=== PATIENT | male | born 1990 | race Caucasian/White ===

== ENCOUNTER 2017-01-19 23:12 | Emergency (ER) | payer OTHER ==
[~2017-01-19] VITALS: Ht 182.9 cm; Wt 89.8 kg
[2017-01-19 23:15] VITALS: BP 140/87; PULSE 102; RESP 18; TEMP 98.3; O2SAT 95
--- NOTE | 2017-01-20 00:18 | NUR ---
Patient to ER bed 2 to gown for evaluation. Side rails up. Report given to KEYONNA OLSEN.
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
--- NOTE | 2017-01-20 00:55 | NUR ---
at bedside examining pt
[2017-01-20] MEDS ORDERED: DIPH-TET-PERTUS Vaccine 0.5 ML VIAL (ADACEL) I.M. ONE (01:00)
--- NOTE | 2017-01-20 02:00 | NUR ---
Pt's wound cleansed and prepared for staple per order
[2017-01-20 03:15] VITALS: BP 132/78; PULSE 92; RESP 18; TEMP 98.3; O2SAT 95
--- NOTE | 2017-01-20 03:24 | NUR ---
Patient given written and verbal discharge instructions and verbalizes understanding. ER MD Carpenter discussed with patient the results and treatment provided. Patient in stable condition. ID arm band removed. No rx given. Patient educated on pain management and to follow up with PMD. Pain Scale 0/10. Opportunity for questions provided and answered.
== END 2017-01-20 03:15 | disposition home or self-care (01) ==
LOC: SED 23:12
DX: S01.01XA Laceration without foreign body of scalp, initial encounter (principal); F10.129 Alcohol abuse with intoxication, unspecified; Z88.2 Allergy status to sulfonamides; X58.XXXA Exposure to other specified factors, initial encounter; Y93.89 Activity, other specified; Y92.89 Other specified places as the place of occurrence of the external cause; Y99.8 Other external cause status
CPT/HCPCS: 70450-TC; 90715; 99284